=== PATIENT | female | born 1970 | race American Indian/Alaskan Native ===

== ENCOUNTER 2017-03-11 09:44 | Outpatient (CLI) | payer MEDICARE ==
--- NOTE | 2017-03-11 10:28 | Mammography Report ---
BILATERAL DIGITAL DIAGNOSTIC MAMMOGRAM with CAD: 03/11/17 09:44:00 CLINICAL: Bilateral global breast pain. COMPARISON:None available. FINDINGS: The breasts are abdominally fatty with scattered bilateral fibroglandular densities.No mass, architectural distortion or suspicious calcifications. Bilateral benign calcifications. IMPRESSION: No mammographic evidence of malignancy.No explanation for bilateral breast pain. BI-RADS CATEGORY: 2 - - Benign RECOMMENDATION: Routine mammographic screening in one year. ACR BI-RADS MAMMOGRAPHIC CODES: 0 = Needs additional imaging evaluation; 1 = Negative; 2 = Benign; 3 = Probably benign; 4 = Suspicious; 5 = Malignant; 6 = Known biopsy-proven malignancy COMMENT: 1. Dense breast tissue, i.e., adenosis, fibrocystic changes, etc., may obscure an underlying neoplasm. 2. Approximately 10% of cancers are not detected with mammography. 3. A negative mammography report should not delay biopsy if a clinically suspicious mass is present. COMMENT: Patient follow-up letters are generated by our [email or web address] application.
== END 2017-03-11 09:45 | disposition home or self-care (01) ==
LOC: SPVWC 09:44
DX: N64.4 Mastodynia (principal)
CPT/HCPCS: 77066; G0204

== ENCOUNTER 2017-10-04 12:05 | Outpatient (CLI) | payer MEDICARE ==
--- NOTE | 2017-10-04 14:54 | XRay Report ---
KUB: 10/04/17 CLINICAL: Sharp lower abdominal pain for one week. History of fibroids. FINDINGS: Normal bowel gas pattern with moderate stool throughout the colon and a large volume of stool in the rectum. No distended small or large bowel. No mass or suspicious calcifications. Numerous phleboliths in the pelvis. There may also be a small calcified left uterine fibroid. Surgical clips in the right upper quadrant, bilateral upper quadrants and in the pelvis slightly to the right of midline. 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 IMPRESSION: Negative abdomen. Status post cholecystectomy as well as additional surgical procedures.
== END 2017-10-04 12:06 | disposition home or self-care (01) ==
LOC: SPVIMAG 12:05
DX: R10.30 Lower abdominal pain, unspecified (principal); I87.8 Other specified disorders of veins; M16.0 Bilateral primary osteoarthritis of hip; Z90.49 Acquired absence of other specified parts of digestive tract
CPT/HCPCS: 74000

== ENCOUNTER 2018-04-17 12:16 | Outpatient (CLI) | payer MEDICARE ==
--- NOTE | 2018-04-18 15:18 | Mammography Report ---
BILATERAL DIGITAL SCREENING MAMMOGRAM with CAD: 04/17/18 12:16:00 CLINICAL: Routine screening. COMPARISON:03/11/17 FINDINGS: The breasts are heterogeneously dense, which may obscure small masses. No mass, architectural distortion or suspicious calcifications. IMPRESSION: No mammographic evidence of malignancy. BI-RADS CATEGORY: 1 - - Negative RECOMMENDATION: Routine mammographic screening in one year. COMMENT: Patient follow-up letters are generated by our [email or web address] application.
== END 2018-04-17 12:17 | disposition home or self-care (01) ==
LOC: SPVWC 12:16
DX: Z12.31 Encounter for screening mammogram for malignant neoplasm of breast (principal)
CPT/HCPCS: 77067

== ENCOUNTER 2018-06-20 09:59 | Outpatient (CLI) | payer MEDICARE ==
--- NOTE | 2018-06-20 10:59 | XRay Report ---
Cervical spine 3 views: History: Neck pain. Findings: Normal height of vertebral bodies and intervertebral disc appear normal articular surfaces. No fracture. Normal prevertebral soft tissue. Impression: Essentially negative cervical spine
--- NOTE | 2018-06-21 08:59 | XRay Report ---
XRAY LEFT SHOULDER THREE VIEWS: 06/20/18 09:59:00 CLINICAL: Left shoulder pain. FINDINGS: No fracture or dislocation. Normal glenohumeral joint. Minimal AC joint arthritis. The soft tissues are normal. IMPRESSION: Minimal acromioclavicular joint arthritis and otherwise negative.
== END 2018-06-20 10:00 | disposition home or self-care (01) ==
LOC: SPVIMAG 09:59
DX: M19.012 Primary osteoarthritis, left shoulder (principal)
CPT/HCPCS: 72040